=== PATIENT | male | born 1980 | race Caucasian/White ===

== ENCOUNTER 2020-01-30 13:55 | Emergency (ER) | payer MEDICARE, MEDICAID ==
[~2020-01-30] VITALS: Ht 177.8 cm; Wt 74.8 kg
[~2020-01-30 13:55] MED LIST: ATIVAN PO; ATIVAN1 MG PO
[2020-01-30] MEDS ORDERED: ATIVAN0.5 MG PO (15:23)
== END 2020-01-30 15:33 | disposition home or self-care (01) ==
LOC: ED 13:55
DX: F41.9 Anxiety disorder, unspecified (principal)

== ENCOUNTER 2020-03-01 13:19 | Emergency (ER) | payer MEDICARE, MEDICAID ==
[~2020-03-01] VITALS: Ht 177.8 cm; Wt 74.8 kg
[~2020-03-01 13:19] MED LIST changes: +ATIVAN0.5 MG PO
[2020-03-01] MEDS ORDERED: ATIVAN0.5 MG PO (14:29)
== END 2020-03-01 14:49 | disposition home or self-care (01) ==
LOC: ED 13:19
DX: F41.9 Anxiety disorder, unspecified (principal); Z79.899 Other long term (current) drug therapy

== ENCOUNTER 2020-03-02 10:16 | Emergency (ER) | payer MEDICARE, MEDICAID ==
[~2020-03-02] VITALS: Ht 177.8 cm; Wt 74.8 kg
== END 2020-03-02 13:43 | disposition home or self-care (01) ==
LOC: ED 10:16
DX: U07.1 COVID-19 (principal); Z79.899 Other long term (current) drug therapy

== ENCOUNTER 2020-03-07 17:02 | Emergency (ER) | payer MEDICARE, MEDICAID ==
[~2020-03-07] VITALS: Wt 74.8 kg
[2020-03-07] MEDS ORDERED: PAROXETINE HCL30 MG PO (17:16)
[2020-03-07] MEDS ORDERED: TYLENOL325 M1 PO (17:40)
[2020-03-07] MEDS ORDERED: TESSALON PERLE100 MG PO (17:40)
== END 2020-03-07 17:51 | disposition home or self-care (01) ==
LOC: ED 17:02
DX: U07.1 COVID-19 (principal)

== ENCOUNTER 2020-03-12 15:13 | Observation (INO) | payer MEDICARE, MEDICAID ==
[~2020-03-12] VITALS: Ht 175.2 cm; Wt 74.8 kg
[~2020-03-12 15:13] MED LIST changes: +PAROXETINE HCL30 MG PO; +TESSALON PERLE100 MG PO; +TYLENOL325 M1 PO
[2020-03-12 15:27] VITALS: BP 130/70
--- NOTE | 2020-03-12 16:28 | NUR ---
PATIENT RESTING IN BED AT THIS TIME. PLAYING ON HIS PHONE. CALL LIGHT IN REACH. WILL CONTINUE TO MONITOR PT.
[2020-03-12 17:06] VITALS: BP 118/72
--- NOTE | 2020-03-12 17:14 | NUR ---
PROVIDERS MADE AWARE OF THE PATIENT AWAITING TO BE SEEN.
--- NOTE | 2020-03-12 17:25 | NUR ---
PATIENT RESTING. CALL LIGHT IN REACH. PATIENT OFFERED TV AND DECLINED. PT REQUEST TO BE PLACED ON NASAL CANNULA FOR COMFORT MEASURES DUE TO INCREASING ANXIETY. SPO2 ON RA IS 95%. PATIENT PLACED ON 2 LITERS. WILL CONTINUE TO MONITOR PT.
--- NOTE | 2020-03-12 18:25 | NUR ---
RESPIRATORY WAS CALLED AND MADE AWARE OF THE PATIENTS ABGs.
[2020-03-12 18:33] LABS: LYMPH # 0.7 10*3/uL (1.3-4.4); LYMPH % 8.4 % (27.0-41.0); MEAN CELL VOLUME 87.6 fl (80.0-94.0); MEAN CORPUSCULAR HGB 29.7 pg (27.0-31.0); MONO # 0.4 10*3/uL (0.1-1.0); NEUT # 7.5 10*3/uL (2.3-7.9); NEUT % 86.1 % (47.0-73.0); PLATELET COUNT AUTOMATED 307 10*3/uL (130-400); RED BLOOD COUNT 4.91 10*6/uL (4.50-5.90); RED CELL DISTRI WIDTH 11.6 % (0-14.5); WHITE BLOOD COUNT 8.7 10*3/uL (4.8-10.8)
[2020-03-12 18:45] LABS: ACT PARTIAL THROMBO TIME 31.9 SECONDS (20.0-32.1)
[2020-03-12 18:53] LABS: ALBUMIN 3.1 gm/dl (3.1-4.5); ALKALINE PHOSPHATASE 57 U/L (45-117); BUN 12 mg/dl (7-24); CHLORIDE 103 mmol/L (98-107); CREATININE 0.95 mg/dL (0.70-1.30); POTASSIUM 3.2 mmol/L (3.5-5.1); SGOT/AST 80 IU/L (3-35); SGPT/ALT 89 U/L (12-78); SODIUM 138 mmol/L (136-145); TOTAL PROTEIN 7.8 gm/dL (6.4-8.2)
[2020-03-12 18:57] LABS: TROPONIN I < 0.015 ng/ml (<0.045)
--- NOTE | 2020-03-12 19:10 | NUR ---
PATIENT CONTINUES TO REST AT THIS TIME. CALL LIGHT IN REACH.
[2020-03-12 19:12] VITALS: BP 122/82
[2020-03-12 19:52] VITALS: BP 120/78
--- NOTE | 2020-03-12 19:59 | NUR ---
PATIENT IS RESTING. OFFERED A BOXED LUNCH AND DECLINED. CALL LIGHT IN REACH. WILL CONTINUE TO MONITOR PT.
[2020-03-12 20:00] LABS: ARTERIAL BLOOD GAS PH 7.466 (7.35-7.45)
[2020-03-12 20:01] LABS: ABG BASE EXCESS 0.9 mmol/L (-2.0-2.0)
--- NOTE | 2020-03-12 21:37 | NUR ---
PATIENT RESTING. CALM. COOPERATIVE. NO COMPLAINTS. RESP EASY AND NON LABORED. CALL LIGHT IN REACH. WILL CONTINUE TO MONITOR.
[2020-03-12 22:30] VITALS: BP 118/72
--- NOTE | 2020-03-12 23:54 | NUR ---
PT RESTING IN ROOM AT THIS TIME. NO VOICED COMPLAINTS. CALL LIGHT WITHIN REACH. WILL CONTINUE TO MONITOR.
--- NOTE | 2020-03-13 02:17 | NUR ---
PT REMAINS RESTING IN ROOM. NO VOICED COMPLAINTS. CALL LIGHT WITHIN REACH. WILL CONTINUE TO MONITOR.
[2020-03-13 02:30] VITALS: BP 116/74
--- NOTE | 2020-03-13 05:14 | NUR ---
PT REMAINS RESTING. NO VOICED COMPLAINTS. WILL CONTINUE TO MONITOR.
[2020-03-13 06:15] LABS: BASO % 0.2 % (0.0-1.0); HEMATOCRIT 41.3 % (42.0-52.0); LYMPH # 1.4 10*3/uL (1.3-4.4); LYMPH % 24.9 % (27.0-41.0); MEAN CORPUSCULAR HGB 29.3 pg (27.0-31.0); MEAN CORPUSCULAR HGB CONC 32.9 g/dl (33.0-37.0); MEAN PLATELET VOLUME 10.2 fl (9.6-12.3); MONO # 0.5 10*3/uL (0.1-1.0); MONO % 8.5 % (3.0-9.0); NEUT # 3.8 10*3/uL (2.3-7.9); NEUT % 66.1 % (47.0-73.0); PLATELET COUNT AUTOMATED 320 10*3/uL (130-400); RED BLOOD COUNT 4.64 10*6/uL (4.50-5.90); RED CELL DISTRI WIDTH 11.6 % (0-14.5); WHITE BLOOD COUNT 5.8 10*3/uL (4.8-10.8)
[2020-03-13 06:24] LABS: ALBUMIN 2.6 gm/dl (3.1-4.5); ALKALINE PHOSPHATASE 47 U/L (45-117); BUN 12 mg/dl (7-24); CHLORIDE 108 mmol/L (98-107); CHOLESTEROL 131 mg/dL (<200); CREATININE 0.75 mg/dL (0.70-1.30); HDL CHOLESTEROL 34 mg/dl (40-60); LDH 332 U/L (87-241); LDL CHOLESTEROL 65 mg/dL (9-159); POTASSIUM 3.4 mmol/L (3.5-5.1); SGOT/AST 120 IU/L (3-35); SGPT/ALT 124 U/L (12-78); SODIUM 144 mmol/L (136-145); TOTAL PROTEIN 6.8 gm/dL (6.4-8.2); TRIGLYCERIDES 161 mg/dl (<150); VLDL CHOLESTEROL 32 mg/dL (6-40)
[2020-03-13 06:29] LABS: FREE T4 1.28 ng/dl (0.76-1.46); THYROID STIM HORMONE (HS) 0.686 uIU/ml (0.358-4.75)
[2020-03-13 06:52] VITALS: BP 102/74
[2020-03-13 07:07] LABS: FERRITIN 1158.6 ng/mL (22.0-322.0); VITAMIN D, 25-HYDROXY 37.9 ng/mL (30-100)
[2020-03-13 08:00] VITALS: BP 125/61
[2020-03-13 08:10] VITALS: BP 114/65
--- NOTE | 2020-03-13 08:31 | NUR ---
PT RECEIVED FROM THE ED AT 0810, REPORT TAKEN AND PATIENT ASSESSED. ASYMPTOMATIC AT THIS TIME.
--- NOTE | 2020-03-13 09:04 | NUR ---
SPOKE WITH DR. MOTA, I LET HIM KNOW THAT THE PATIENT'S HOME MEDS HAVE BEEN RECONCILED.
[2020-03-13 12:00] VITALS: BP 122/58
--- NOTE | 2020-03-13 15:00 | NUR ---
PT TO BE DISCHARGED TO HOME. PT IS AMBULATORY AND A+OX3 AT THIS TIME AND ALSO REMIANS ASYMPTOMATIC.
== END 2020-03-13 16:56 | disposition home or self-care (01) ==
LOC: ED 15:13 → EDHOLD 19:54 → 4E 03-13 07:49
PROVIDERS: Internal Medicine; Physician Assistant; ADMIT Internal Medicine; ATTEND Internal Medicine
DX: U07.1 COVID-19 (principal); R06.00 Dyspnea, unspecified; R00.0 Tachycardia, unspecified; E87.6 Hypokalemia; F41.1 Generalized anxiety disorder; F25.9 Schizoaffective disorder, unspecified; R70.0 Elevated erythrocyte sedimentation rate; R79.82 Elevated C-reactive protein (CRP)